=== PATIENT | female | born 1960 | race Caucasian/White ===

== ENCOUNTER 2018-12-17 10:58 | Day surgery (SDC) | payer OTHER ==
[~2018-12-17] VITALS: Ht 152.4 cm; Wt 73.5 kg
[~2018-12-17 10:58] MED LIST: NO MEDS.
[2018-12-17 11:34] VITALS: Ht 152.4 cm; Wt 73.5 kg
[2018-12-17 11:54] VITALS: BP 100/64; RESP 16
[2018-12-17] MEDS ORDERED: MIDAZOLAM 1 MG/ML 2 ML INJ ONE ×2 (12:39→12:40)
[2018-12-17] MEDS ORDERED: FENTAnyl 50 MCG/ML VIAL ONE (12:40)
[2018-12-17 12:52] VITALS: BP 102/55; PULSE 64; RESP 17
== END 2018-12-17 13:54 | disposition home or self-care (01) ==
LOC: GIL 10:58
PROVIDERS: ATTEND Internal Medicine Gastroenterology
DX: Z12.11 Encounter for screening for malignant neoplasm of colon (principal); K64.8 Other hemorrhoids; K57.30 Diverticulosis of large intestine without perforation or abscess without bleeding
CPT/HCPCS: 45378; J2250; J3010